=== PATIENT | female | born 1950 | race Caucasian/White ===

== ENCOUNTER 2018-04-30 10:29 | Observation (INO) | payer MEDICARE, BC ==
[~2018-04-30] VITALS: Ht 152.4 cm; Wt 76.0 kg
[~2018-04-30 10:29] MED LIST: BUPIVACAINE/PF-EPI 0.5% 1:200K ONE
[2018-04-30] MEDS ORDERED: OMEP-110 PO (11:24)
[2018-04-30] MEDS ORDERED: RANI-448 PO (11:24)
[2018-04-30] MEDS ORDERED: RANI150T4 PO (11:24)
[2018-04-30] MEDS ORDERED: TRIA1CAP PO (11:24)
[2018-04-30] MEDS ORDERED: LIDOCAINE-MPF 1%, 2ML INFIL ONE (11:30)
[2018-04-30] MEDS: PLEASE ENTER ALLERGIES MC SCH ×2 (11:30→19:30)
[2018-04-30 11:32] VITALS: BP 113/82
[2018-04-30 12:03] LABS: ALANINE AMINOTRANSFERASE 16 U/L (12-78); ALBUMIN 3.5 g/dL (3.4-5.0); ANION GAP 5 mmol/L (5-15); CALCIUM 8.9 mg/dL (8.5-10.1); CHLORIDE 105 mmol/L (98-107)
[2018-04-30 12:06] LABS: ALKALINE PHOSPHATASE 73 U/L (45-117); BILIRUBIN,TOTAL 1.3 mg/dL (0.2-1.0); TOTAL PROTEIN 6.6 g/dL (6.4-8.2)
[2018-04-30] MEDS: LACTATED RINGERS 1,000 ML IV SCH ×2 (12:21→19:41)
[2018-04-30] MEDS ORDERED: FENTANYL PF 100 MCG/2ML ONE ×2 (15:07)
[2018-04-30] MEDS ORDERED: MIDAZOLAM 1 MG/ML, 2ML ONE (15:08)
[2018-04-30] MEDS ORDERED: MEPERIDINE/PF 50 MG/ML IVPush PRN (15:30)
[2018-04-30] MEDS ORDERED: FENTANYL PF 100 MCG/2ML IV PRN (15:30)
[2018-04-30] MEDS ORDERED: ONDANSETRON 2MG/ML, 2ML IV PRN (15:30)
[2018-04-30] MEDS ORDERED: LABETALOL 5MG/ML, 20ML IV PRN (15:30)
[2018-04-30] MEDS ORDERED: HYDROmorphone 2 MG/ML, 1ML IVPush PRN (15:30)
[2018-04-30] MEDS ORDERED: ACETAMINOPHEN 325 MG TABLET PO PRN (15:30)
[2018-04-30] MEDS ORDERED: OXYcodone 5 MG/5 ML ORAL.SOL UDC PO PRN (15:30)
[2018-04-30] MEDS ORDERED: ONDANSETRON 2MG/ML, 2ML ONE (16:09)
[2018-04-30] MEDS ORDERED: CEFAZOLIN 1,000 MG ONE (16:09)
[2018-04-30] MEDS ORDERED: DEXAMETHASONE 4 MG/ML, 1ML ONE (16:09)
[2018-04-30] MEDS ORDERED: ROCURONIUM 10MG/ML,5ML ONE (16:09)
[2018-04-30] MEDS ORDERED: PROPOFOL 10 MG/ML, 20ML ONE (16:09)
[2018-04-30] MEDS ORDERED: SUCCINYLCHOLINE 20 MG/ML, 10ML ONE (16:09)
[2018-04-30] MEDS ORDERED: NEOSTIGMINE 1 MG/ML, 10ML ONE (16:09)
[2018-04-30] MEDS ORDERED: GLYCOPYRROLATE 0.2MG/1ML, 5ML ONE (16:09)
[2018-04-30] MEDS ORDERED: LACTATED RINGERS 1,000 ML IV SCH (16:18)
[2018-04-30] MEDS ORDERED: HYDROcodone/APAP 5/325 TABLET PO PRN (16:30)
[2018-04-30] MEDS ORDERED: ONDANSETRON 2MG/ML, 2ML IVPush PRN (16:30)
[2018-04-30] MEDS ORDERED: morphine SULFATE 10 MG/ML, 1ML IVPush PRN (16:30)
[2018-04-30 19:00] VITALS: BP 130/82
== END 2018-04-30 20:50 | disposition home or self-care (01) ==
LOC: OUT 10:29 → ORIP 16:18 → 4NOR 17:38
PROVIDERS: ADMIT Surgery Vascular Surgery; ATTEND Thoracic Surgery (Cardiothoracic Vascular Surgery)
DX: K95.09 Other complications of gastric band procedure (principal); K21.9 Gastro-esophageal reflux disease without esophagitis; E03.9 Hypothyroidism, unspecified; M19.90 Unspecified osteoarthritis, unspecified site; F10.99 Alcohol use, unspecified with unspecified alcohol-induced disorder; E78.00 Pure hypercholesterolemia, unspecified; Y83.1 Surgical operation with implant of artificial internal device as the cause of abnormal reaction of the patient, or of later complication, without mention of misadventure at the time of the procedure
CPT/HCPCS: 36415; 43774; 80053; 93005; G0378; J0330; J0690; J1100; J2250; J2405; J2704; J2710; J3010; J3490; J7120